=== PATIENT | male | born 1970 | race Caucasian/White ===

== ENCOUNTER 2017-11-18 11:32 | Emergency (ER) | payer SELFPAY ==
[2017-11-18] MEDS ORDERED: ONDANSETRON 4 MG TAB.RAPDIS PO ONE (12:21)
[2017-11-18] MEDS ORDERED: CLINDAMYCIN HCL 150 MG CAPSULE PO ONE (12:22)
[2017-11-18] MEDS ORDERED: LIDOCAINE 2% VISCOUS SOLN 20 ML UDCUP PO ONE (12:22)
--- NOTE | 2017-11-18 12:27 | ER Document Report ---
ED Oral Problem - General Chief Complaint: Mouth Problem Stated Complaint: MOUTH PAIN Time Seen by Provider: 11/18/17 12:13 Mode of Arrival: Ambulatory Information source: Patient Notes: 46-year-old male presents to ED for dental pain with nausea and vomiting. He states the pain became much worse on Friday and he has not been to her dentist or doctor. He states he has had dental pain for a long time and has not been to the dentist. Patient is alert and oriented respirations regular and nonlabored speaking in full sentences. Patient states he is on daily methadone TRAVEL OUTSIDE OF THE [place] IN LAST 30 DAYS: No - HPI Patient complains to provider of: Toothache Onset: Other - Chronic with an exacerbation of pain on Friday Quality of pain: Throbbing Severity: Severe Pain Level: 5 Associated symptoms: Other - Decayed teeth multiple with gingivitis poor dental hygiene Worsened by: Nothing Relieved by: Nothing Similar symptoms previously: Yes Recently seen / treated by doctor/dentist: No - Related Data Allergies/Adverse Reactions: No Known Allergies Allergy (Verified 12/24/14 03:11) Past Medical History - General Information source: Patient - Social History Smoking Status: Current Every Day Smoker Cigarette use (# per day): Yes - Pack per day Chew tobacco use (# tins/day): No Smoking Education Provided: Yes - 4 minutes Frequency of alcohol use: None Drug Abuse: Other - States he is on daily methadone Lives with: Family Family History: Reviewed & Not Pertinent - No colon cancer Patient has suicidal ideation: No Patient has homicidal ideation: No - Past Medical History Cardiac Medical History: Reports: None Pulmonary Medical History: Reports: Hx Asthma EENT Medical History: Reports: None Neurological Medical History: Reports: Hx Migraine Endocrine Medical History: Reports: None Renal/ Medical History: Reports: Hx Kidney Stones Malignancy Medical History: Reports None GI Medical History: Reports: None Musculoskeletal Medical History: Reports Hx Arthritis, Reports Hx Musculoskeletal Deformity, Reports Hx Musculoskeletal Trauma Skin Medical History: Reports None Psychiatric Medical History: Reports: None Traumatic Medical History: Reports: None Infectious Medical History: Reports: None Past Surgical History: Reports: Hx Oral Surgery - Immunizations Immunizations up to date: Yes Hx Diphtheria, Pertussis, Tetanus Vaccination: Yes Review of Systems - Review of Systems Constitutional: No symptoms reported EENT: Mouth pain, Dental problem Cardiovascular: No symptoms reported Respiratory: No symptoms reported Gastrointestinal: Nausea, Vomiting Genitourinary: No symptoms reported Male Genitourinary: No symptoms reported Musculoskeletal: Back pain - Chronic states that is not what he is here for today but that is what he takes his methadone for Skin: No symptoms reported Hematologic/Lymphatic: No symptoms reported Neurological/Psychological: No symptoms reported -: Yes All other systems reviewed and negative Physical Exam - Vital signs Vitals: Temp Pulse Resp BP Pulse Ox 98.5 F 61 16 136/89 H 100 11/18/17 11:38 11/18/17 11:38 11/18/17 11:38 11/18/17 11:38 11/18/17 11:38 Interpretation: Normal - General General appearance: Appears well, Alert - HEENT Head: Normocephalic, Atraumatic Eyes: Normal Pupils: PERRL Ears: Normal External canal: Normal Tympanic membrane: Normal Sinus: Normal Nasal: Normal Mouth/Lips: Caries - Multiple most of his teeth Teeth diagram: 1 - Very poor dental hygiene multiple decayed teeth many broken off at the gum gingivitis no signs or symptoms of Shlomo's angina Pharynx: Normal Neck: Anterior cervical chain - Respiratory Respiratory status: No respiratory distress Chest status: Nontender Breath sounds: Normal Chest palpation: Normal - Cardiovascular Rhythm: Regular Heart sounds: Normal auscultation Murmur: No - Abdominal Inspection: Normal Distension: No distension Bowel sounds: Normal Tenderness: Nontender. No: Tender Organomegaly: No organomegaly - Back Back: Normal, Nontender - Extremities General upper extremity: Normal inspection, Nontender, Normal color, Normal ROM , Normal temperature General lower extremity: Normal inspection, Nontender, Normal color, Normal ROM , Normal temperature, Normal weight bearing. No: Shahab's sign - Neurological Neuro grossly intact: Yes Cognition: Normal Orientation: AAOx4 [place] Coma Scale Eye Opening: Spontaneous [place] Coma Scale Verbal: Oriented [place] Coma Scale Motor: Obeys Commands Dandre Coma Scale Total: 15 Speech: Normal Motor strength normal: LUE, RUE, LLE, RLE Sensory: Normal - Psychological Associated symptoms: Normal affect, Normal mood - Skin Skin Temperature: Warm Skin Moisture: Dry Skin Color: Normal Course - Re-evaluation Re-evalutation: 11/18/17 12:33 Patient was treated with clindamycin and Zofran for his nausea and his dental infections. Patient was discharged home with prescription for Zofran and clindamycin. Patient instructed to follow-up with the dentist and the primary doctor. Patient needs extensive work on his multiple cavities. 11/18/17 12:34 Presentation is most consistent with likely an infected tooth. Airway is patent. Vitals within normal limits. Patient is able swallow without any difficulty. There is no significant facial swelling. No evidence of Shlomo angina, apical abscess, or airway obstruction. Patient will be started on antibiotics. I've instructed to follow-up with dentistry as earliest ability for definitive management. At this time will discharge with return precautions and follow-up recommendations. Verbal discharge instructions given a the bedside and opportunity for questions given. Medication warnings reviewed. Patient is in agreement with this plan and has verbalized understanding of return precautions and the need for primary care follow-up in the next 24-72 hours. - Vital Signs Vital signs: Temp Pulse Resp BP Pulse Ox 98.0 F 67 16 128/79 H 100 11/18/17 12:19 11/18/17 12:19 11/18/17 12:19 11/18/17 12:19 11/18/17 12:19 Discharge - Discharge Clinical Impression: Pain due to dental caries Condition: Stable Disposition: HOME, SELF-CARE Instructions: Family Physicians / Practices Additional Instructions: TOOTHACHE: Your pain is due to dental decay. The tooth must be repaired in order for you to feel better. You will, therefore, be referred to a dentist. We do not have dentists on the staff at [facility]. Severe swelling or drainage around a tooth usually means a dental abscess. This also requires evaluation and treatment by the dentist, but antibiotics may be prescribed while awaiting dental treatment. You should be rechecked immediately if you develop major swelling of the face, increasing pain, a lump in the jaw or gums, headache, difficulty swallowing, or fever. CLINDAMYCIN: You have been given a prescription for the antibiotic clindamycin. It is often prescribed for infections in the mouth, such as dental infections or abscesses, and for skin infections due to MRSA. It's important that you take all the medication, unless instructed otherwise by your physician. Failure to complete the entire course can result in relapse of your condition. Common side effects of antibiotics include nausea, intestinal cramping, or diarrhea. Women may develop vaginal yeast infections, and babies can get yeast (thrush) in the mouth following the use of antibiotics. Contact your physician if you develop significant side effects from this medication. Allergy to this antibiotic can result in hives, wheezing, faintness, or itching. If symptoms of allergy occur, stop the medication and call the doctor. VOMITING: Vomiting (or nausea without vomiting) can be caused by many other different problems. It can mean that something's wrong with the stomach, such as ulcers or inflammation or the intestinal tract, such as appendicitis. But it can also be a symptom of a problem that has nothing to do with the stomach or intestines. Vomiting is common with severe headaches, earaches, tonsillitis, and kidney infections, etc. We see it with pneumonia or heart attacks. Drugs can cause nausea and vomiting. Many abdominal problems cause vomiting; for example, gallstones, kidney stones, pancreatitis, and intestinal obstruction ( blocked bowels). In most cases, curing the vomiting depends on fixing the problem that caused it. For temporary relief, we may use an anti-nausea medicine. For home use, we can prescribe suppositories, chewable pills, pills that dissolve in the mouth, or liquid anti-nausea drugs. If the vomiting seems to be caused by a problem in the stomach, acid-suppressing drugs may be prescribed as well. It's important to avoid dehydration. Sip small amounts of clear liquids ( soft drinks, tea, broth, etc) . Try to take fluids frequently even if you are vomiting to prevent dehydration. Take increasing amounts of fluid and when liquids are being consumed successfully, advance to small amounts of bland food (toast, soups, mashed potatoes, etc.) until you are able to resume a regular diet. Avoid aspirin, tobacco, and alcohol. If the vomiting worsens, if the problem that's making you vomit worsens, or if there's evidence of bleeding in the stomach (such as black, tarry stool, or bloody or black vomit), you should return immediately. Also, return if abdominal pain worsens or becomes localized to one area or you develop high fever. Call your doctor if you aren't improved in 24 hours. ANTINAUSEA MEDICATION: You have been given a medication to suppress nausea and vomiting. This type of medication can be given as a shot, pill, or suppository. It will usually last for many hours. Pills and shots usually last six to eight hours. For the typical illness, only one or two doses of the medication may be necessary. Mild lightheadedness may occur. This type of medicine can cause drowsiness. Do not drive or operate dangerous machinery while under its influence. Do not mix with alcohol. See your doctor at once if you have muscle spasms or tightness, or uncontrollable motions (particularly of the neck, mouth, or jaw). Persistent vomiting or severe lightheadedness should also be evaluated by the physician. FOLLOW-UP CARE: You have been referred for follow-up care to the dentists listed below. Call the dentists office for an appointment as you were instructed or within the next two days. If you experience worsening or a significant change in your symptoms, notify the physician immediately or return to the Emergency Department at any time for re-evaluation. [facility] [address] [place], [place] [facility] [address] [place] [address] [facility] [address] [facility] [address] [facility] [address] [email or web address] [address] [place] [address] Friday- 8:00am to 5:00 pm Will see patients from other [facility]. Charges based on income and family size and accepts Medicare, Medicaid, and Insurances Will pull molars [facility] [address] Hours of Operation 8:00 am - 4:30 pm weekdays The following dental offices accept Medicaid: [facility] [place] [address] [place] Dr. Calles Dr. Perales Ric Greenberg, [place], and [place] oral surgery Dr. Guajardo ([place]) Dr. Tan ([place]) [facility] Drs. Mills ([place]) Dr. Tapia ([place]) [facility] Dr. Nathan ([place]) Drs. Lin and ([place]) Medicaid Care Line Prescriptions: Ondansetron [Zofran Odt 4 mg Tablet] 1 - 2 tab PO Q4HP PRN #10 tab.rapdis PRN Reason: Clindamycin HCl 300 mg PO Q6 #40 capsule Forms: Elevated Blood Pressure, Smoking Cessation Education
[2017-11-18 12:48] VITALS: BP 128/79
== END 2017-11-18 12:40 | disposition home or self-care (01) ==
LOC: ER 11:32
DX: K02.9 Dental caries, unspecified (principal); R11.2 Nausea with vomiting, unspecified; F17.210 Nicotine dependence, cigarettes, uncomplicated; Z87.442 Personal history of urinary calculi
CPT/HCPCS: 99406; 99282; S0119; J3490

== ENCOUNTER 2019-02-08 09:07 | Emergency (ER) | payer SELFPAY ==
[2019-02-08 09:28] VITALS: BP 129/75
[2019-02-08] MEDS ORDERED: ONDANSETRON HCL INJ/PF 4 MG/2 ML SDV IV ONE (10:21)
[2019-02-08] MEDS ORDERED: NORMAL SALINE 1000 ML 1,000 ML IV ONE (10:21)
--- NOTE | 2019-02-08 10:23 | ER Document Report ---
ED Medical Screen (RME) - General Chief Complaint: Low Back Pain Stated Complaint: BACK PAIN Time Seen by Provider: 02/08/19 10:15 Information source: Patient Notes: Patient presents complaining of generalized body pain, low back pain nausea and vomiting. Patient states that he has been off of methadone for the past 9 days. Patient states he did take a Percocet yesterday. Patient does report chronic neck and back pain. I have greeted and performed a rapid initial assessment of this patient. A comprehensive ED assessment and evaluation of the patient, analysis of test results and completion of the medical decision making process will be conducted by additional ED providers. TRAVEL OUTSIDE OF THE [place] IN LAST 30 DAYS: No - Related Data Allergies/Adverse Reactions: No Known Allergies Allergy (Verified 12/24/14 03:11) Past Medical History - Social History Frequency of alcohol use: None Drug Abuse: Marijuana Pulmonary Medical History: Reports: Hx Asthma Neurological Medical History: Reports: Hx Migraine Renal/ Medical History: Reports: Hx Kidney Stones. Denies: Hx Peritoneal Dialysis Musculoskeltal Medical History: Reports Hx Arthritis, Reports Hx Musculoskeletal Deformity, Reports Hx Musculoskeletal Trauma Past Surgical History: Reports: Hx Oral Surgery - Immunizations Immunizations up to date: Yes Hx Diphtheria, Pertussis, Tetanus Vaccination: Yes Physical Exam - Vital signs Vitals: Temp Pulse Resp BP Pulse Ox 98.1 F 69 20 129/75 H 100 02/08/19 09:27 02/08/19 09:27 02/08/19 09:27 02/08/19 09:27 02/08/19 09:27 - General General appearance: Alert, Anxious Notes: Generalized body pain, lower lumbar tenderness Course - Vital Signs Vital signs: Temp Pulse Resp BP Pulse Ox 98.1 F 69 20 129/75 H 100 02/08/19 09:27 02/08/19 09:27 02/08/19 09:27 02/08/19 09:27 02/08/19 09:27
[2019-02-08 11:06] LABS: ABSOLUTE BASOPHILS # (AUTO) 0.1 10^3/uL (0.0-0.2); ABSOLUTE LYMPHOCYTES (AUTO) 1.2 10^3/uL (0.5-4.7); ABSOLUTE MONOCYTES (AUTO) 0.5 10^3/uL (0.1-1.4); EOSINOPHILS % (AUTO) 0.1 % (0-6); HEMATOCRIT 35.9 % (37.9-51.0); HEMOGLOBIN 12.3 g/dL (13.5-17.0); LYMPHOCYTES % (AUTO) 15.1 % (13-45); MEAN CORPUSCULAR HEMOGLOBIN 31.6 pg (27.0-33.4); MEAN CORPUSCULAR HGB CONC 34.3 g/dL (32.0-36.0); MEAN CORPUSCULAR VOLUME 92 fl (80-97); MONOCYTES % (AUTO) 6.4 % (3-13); PLATELET COUNT 270 10^3/uL (150-450); RED CELL DISTRIBUTION WIDTH 13.4 % (11.5-14.0); SEGMENTED NEUTROPHILS % (AUTO) 77.4 % (42-78); TOTAL CELLS COUNTED % (AUTO) 100 %; WHITE BLOOD COUNT 7.7 10^3/uL (4.0-10.5)
[2019-02-08] MEDS ORDERED: METOCLOPRAMIDE HCL INJ/PF 10 MG/2 ML SDV IV ONE (11:09)
[2019-02-08] MEDS ORDERED: DIPHENHYDRAMINE HCL 50 MG/ML VIAL IV ONE (11:09)
[2019-02-08] MEDS ORDERED: KETOROLAC TROMETHAMINE INJ/PF 30 MG/1 ML SDV IV ONE (11:09)
[2019-02-08 11:36] LABS: ALBUMIN 4.4 g/dL (3.5-5.0); ALKALINE PHOSPHATASE 45 U/L (38-126); ANION GAP 10 (5-19); ASPARTATE AMINO TRANSFERASE 17 U/L (17-59); BILIRUBIN,DIRECT 0.1 mg/dL (0.0-0.4); BILIRUBIN,TOTAL 0.4 mg/dL (0.2-1.3); BLOOD UREA NITROGEN 6 mg/dL (7-20); CALCIUM 9.7 mg/dL (8.4-10.2); CARBON DIOXIDE 23 mmol/L (22-30); CHLORIDE 108 mmol/L (98-107); GLUCOSE 111 mg/dL (75-110); POTASSIUM 3.1 mmol/L (3.6-5.0); TOTAL PROTEIN 7.3 g/dL (6.3-8.2)
[2019-02-08] MEDS ORDERED: POTASSIUM CHLORIDE 10 MEQ CAPSULE.ER PO ONE (11:55)
[2019-02-08 11:58] LABS: APPEARANCE,URINE CLEAR; BILIRUBIN,URINE NEGATIVE (NEGATIVE); COLOR,URINE YELLOW; GLUCOSE, URINE NEGATIVE (NEGATIVE); KETONES,URINE 20 mg/dL (NEGATIVE); LEUKOCYTE ESTERASE,URINE NEGATIVE (NEGATIVE); NITRITE,URINE NEGATIVE (NEGATIVE); PROTEIN,URINE NEGATIVE (NEGATIVE); URINE SPECIFIC GRAVITY 1.014; UROBILINOGEN,URINE NEGATIVE mg/dL (<2.0)
== END 2019-02-08 13:30 | disposition left against medical advice (07) ==
LOC: ER 09:07
DX: Z53.21 Procedure and treatment not carried out due to patient leaving prior to being seen by health care provider (principal); M54.5 Low back pain; M79.10 Myalgia, unspecified site; R11.2 Nausea with vomiting, unspecified; M54.2 Cervicalgia; G89.29 Other chronic pain; F41.9 Anxiety disorder, unspecified; Z79.899 Other long term (current) drug therapy; J45.909 Unspecified asthma, uncomplicated
CPT/HCPCS: 36415; 83690; 83735; 85025; 80053; 81001; J1200; J1885; J2765; J2405; J7030; 96361; 96374; 96375; 99283